=== PATIENT | male | born 1970 | race Caucasian/White ===

== ENCOUNTER 2020-12-19 20:06 | Emergency (ER) | payer BC ==
[2020-12-19] MEDS ORDERED: Diphtheria,Pertussis(Acell),Tetanus Vaccine 0.5 ML Syringe IM ONE (20:56)
[2020-12-19] MEDS ORDERED: Lidocaine 1% with EPINEPHrine 1:100,000 50 ML MDV INFILT STA (20:56)
[2020-12-19] MEDS ORDERED: Bacitracin Oint 1 GM U/D Packet TOP ONE (20:56)
--- NOTE | 2020-12-19 21:06 | EDM.PDOC ---
ED HPI GENERAL MEDICAL PROBLEM - General Chief Complaint: Head Injury Stated Complaint: HIT HEAD ON HAMMOCK POST Time Seen by Provider: 12/19/20 20:41 Source of Information: Reports: Patient History Limitations: Reports: No Limitations - History of Present Illness INITIAL COMMENTS - FREE TEXT/NARRATIVE: Edd is a 50-year-old male presenting to the ED for an open head injury. Heath nicholas was in his usual state of health when he went to lay down in a hammock at [facility] and a 5 x 6 inch post that the hammock was attached to snapped off at the ground falling and striking him in the head resulting in a 3.8 cm laceration in the midline forehead just below the hairline. The patient attempted closure of the wound using butterfly bandages and bleeding is under control at time of arrival. He denies any loss of consciousness, headache, nausea or vomiting, vision changes, or dizziness. Denies any neck or back pain. - Related Data Allergies Allergy/AdvReac Type Severity Reaction Status Date / Time No Known Allergies Allergy Verified 12/19/20 20:41 Home Meds: Home Meds NK [No Known Home Meds] 12/19/20 [History] Social & Family History - Tobacco Use Tobacco Use Status *Q: Never Tobacco User - Recreational Drug Use Recreational Drug Use: No ED ROS GENERAL - Review of Systems Review Of Systems: See Below Constitutional: Reports: No Symptoms HEENT: Reports: Other (Laceration and hematoma midline forehead just below hairline) Respiratory: Reports: No Symptoms Cardiovascular: Reports: No Symptoms Endocrine: Reports: No Symptoms GI/Abdominal: Reports: No Symptoms : Reports: No Symptoms Musculoskeletal: Reports: No Symptoms Skin: Reports: Bruising (Midline forehead), Wound (Laceration midline forehead) Neurological: Reports: No Symptoms Psychiatric: Reports: No Symptoms Hematologic/Lymphatic: Reports: No Symptoms Immunologic: Reports: No Symptoms ED EXAM, HEAD INJURY - Physical Exam Exam: See Below Exam Limited By: No Limitations General Appearance: Alert, No Apparent Distress, Anxious Head: Normocephalic, Facial Lacerations (3.8 cm laceration midline forehead from just below the hairline towards the eyebrows), Facial Swelling (Midline forehead), Facial Tenderness (Midline forehead). No: Active Bleeding, Lr's Sign, Raccoon Eyes Nexus Criteria: No: Posterior, Midline Cervical Tenderness, Evidence of Intoxication, Altered Level of Consciousness, Focal Neurological Deficit, Painful Distraction Injuries Eyes: Bilateral Eye: EOMI, PERRL Nose: Normal Inspection, Normal Mucousa Throat/Mouth: Normal Inspection, Normal Lips, Normal Teeth, Normal Oropharynx, Normal Voice, No Airway Compromise Neck: Non-Tender, Full Range of Motion, Normal Alignment, Normal Inspection Respiratory: No Respiratory Distress, Lungs Clear, Normal Breath Sounds Cardiovascular: Normal Peripheral Pulses, Regular Rate, Rhythm, No Murmur GI/Abdominal Exam: Normal Bowel Sounds, Soft, Non-Tender, No Organomegaly Extremities: Normal Inspection Neurologic: access lead II-XII nml As Tested, No Motor/Sensory Deficits, Alert, Normal Mood/Affect, Oriented x 3 Skin: Other - [place] Coma Score Best Eye Response ([place]): (4) Open Spontaneously Best Verbal Response (Steffi): (5) Oriented Best Motor Response (Steffi): (6) Obeys Commands ED LACERATION/WOUND & MAMIE PROC - Laceration/Wound Repair Upper Midline Forehead Lac/wound length in cm: 3.8 Appearance: Muscle, Clean Distal NVT: Neuro & Vascular Intact Anesthetic Type: Local Local Anesthesia - Lidocaine (Xylocaine): 1% with EPI Local Anesthetic Volume: 4cc Skin Prep: Other (Soap and water) Exploration/Debridement/Repair: Wound Explored, In a Bloodless Field, Explored to Base Closed with: Sutures Suture Size: 4-0 # of Sutures: 7 Suture Type: Nylon, Interrupted Sterile Dressing Applied: Provider Tetanus Status Addressed: Yes Complications: No Course - Vital Signs Last Recorded V/S: Last Vital Signs Temp 36.6 C 12/19/20 20:45 Pulse 70 12/19/20 20:45 Resp 16 12/19/20 20:45 BP 144/92 H 12/19/20 20:45 Pulse Ox 97 12/19/20 20:45 - Orders/Labs/Meds Orders: Active Orders 24 hr Category Date Time Status Vaccines to be Administered [RC] PER UNIT ROUTINE Care 12/19/20 20:56 Active Meds: Medications Discontinued Medications Generic Name Dose Route Start Last Admin Trade Name Freq PRN Reason Stop Dose Admin Bacitracin 1 dose 12/19/20 20:56 12/19/20 21:27 Bacitracin Oint 1 Gm U/D Packet TOP 12/19/20 20:57 1 dose ONETIME ONE Administration Diphtheria/Tetanus/Acell Pertussis 0.5 ml 12/19/20 20:56 12/19/20 21:33 Diphtheria,Pertussis(Acell),Tetanus Vaccine 0.5 Ml Syringe IM 12/19/20 20:57 0.5 ml .ONCE ONE Administration Lidocaine/Epinephrine 5 ml 12/19/20 20:56 12/19/20 21:27 Lidocaine 1% With Epinephrine 1:100,000 50 Ml Mdv INFILT 12/19/20 20:57 5 ml ONETIME STA Administration - Radiology Interpretation Free Text/Narrative:: I reviewed the images and the report on the CT of the head without contrast on Edd. There is no acute intracranial hemorrhage identified. There is no mass or midline shift. There is no abnormalities of the skull. Patient does have a small frontal scalp contusion without evidence of fracture. - Re-Assessments/Exams Free Text/Narrative Re-Assessment/Exam: 12/19/20 22:02 the patient's examination is unremarkable for any focal findings with the exception of the laceration in the midline forehead. CT of the head was performed without contrast showing no acute abnormalities other than a scalp contusion of the frontal scalp. There is no identifiable skull fracture or intracranial process. The wound was cleansed with soap and water and anestheti zed using lidocaine 1% with epinephrine. The wound was closed using 4-0 Ethilon requiring 7 simple interrupted sutures. Patient tolerated the procedure well without complication. A likely bacitracin was applied over the wound. As the patient is currently camping, we will put him prophylactically on cephalexin 1 tablet 3 times a day for the next 5 days to prevent infection. Sutures will need to be removed in the next 5 days which can be done at his local clinic. Indications return to the ED were discussed and he was discharged in satisfactory condition. Departure - Departure Time of Disposition: 22:03 Disposition: Home, Self-Care 01 Clinical Impression: Open head injury, Forehead laceration - Discharge Information Instructions: Laceration Care, Adult, Head Injury, Adult, [id number] Referrals: PCP,None [Primary Care Provider] - Forms: ED Department Discharge Care Plan Goals: Your CAT scan was unremarkable for any significant findings except for blood between the skull and forehead called a hematoma. Your wound closed nicely and the sutures will need to be removed in 5 days. Please apply light coating of bacitracin or Neosporin over the wound twice daily. Keep the wound dry for the next 24 hours after which you can wash her hair is normal. We are putting you on cephalexin which is an antibiotic to prevent infection of the wound. You may develop a headache over the next 24 hours but if you start to develop any nausea, vomiting, vision changes, numbness, tingling, or weakness please return immediately to the ER for reevaluation. [facility] and I hope that you catch her Musky for your photo-op. Sepsis Event Note (ED) - Evaluation Sepsis Screening Result: No Definite Risk - Focused Exam Vital Signs: Vital Signs Temp Pulse Resp BP Pulse Ox 12/19/20 20:45 36.6 C 70 16 144/92 H 97 12/19/20 20:32 36.6 C 70 16 144/92 H 97 - Problem List & Annotations (1) Forehead laceration SNOMED Code(s): 181479209 Code(s): S01.81XA - LACERATION W/O FOREIGN BODY OF OTH PART OF HEAD, INIT ENCNTR Status: Acute Priority: Medium Current Visit: Yes Qualifiers: Encounter type: initial encounter Qualified Code(s): S01.81XA - Laceration without foreign body of other part of head, initial encounter (2) Open head injury SNOMED Code(s): 32108497 Code(s): S01.90XA - UNSP OPEN WOUND OF UNSPECIFIED PART OF HEAD, INIT ENCNTR Status: Acute Priority: High Current Visit: Yes Qualifiers: Encounter type: initial encounter Qualified Code(s): S01.90XA - Unspecified open wound of unspecified part of head, initial encounter - Problem List Review Problem List Initiated/Reviewed/Updated: Yes - My Orders Last 24 Hours: My Active Orders 12/19/20 20:56 Vaccines to be Administered [RC] PER UNIT ROUTINE - Assessment/Plan Last 24 Hours: My Active Orders 12/19/20 20:56 Vaccines to be Administered [RC] PER UNIT ROUTINE
--- NOTE | 2020-12-19 21:47 | CRLCT ---
INDICATION: Patient was in hammock and it broke and the 5x6 post hit him in the head - happened tonight. CT HEAD WITHOUT CONTRAST TECHNIQUE: Multiple axial CT images were performed through the head without intravenous contrast administration. COMPARISON: No previous studies are currently available for comparison. FINDINGS: No acute intracranial hemorrhage is identified. No extra-axial collections are evident and there is no mass effect or midline shift. Ventricles are normal in size and configuration. Brain parenchyma appears normal with unremarkable lewis-white differentiation. A small frontal scalp contusion is seen in the midline. Osseous structures are within normal limits and no fractures are seen. Included portions of the paranasal sinuses and mastoid air cells are normally aerated. IMPRESSION: 1. No intracranial abnormality identified. 2. Small frontal scalp contusion. No fracture is seen. RAMIRO WEINSTEIN MD [facility] Dictated by Aldair Weinstein MD @ 12/19/2020 9:45:36 PM Dictated by: Aldair Weinstein MD @ 12/19/2020 21:46:22 (Electronically Signed)
== END 2020-12-19 22:43 | disposition home or self-care (01) ==
LOC: JP.ED 20:06
DX: S01.81XA Laceration without foreign body of other part of head, initial encounter (principal); Z23 Encounter for immunization; W18.09XA Striking against other object with subsequent fall, initial encounter
CPT/HCPCS: 12013; 70450; 90471; 90715; 99283-25